=== PATIENT | female | born 1990 | race Caucasian/White ===

== ENCOUNTER 2022-12-04 05:01 | Emergency (ER) | payer OTHER ==
[~2022-12-04] VITALS: Ht 154.9 cm; Wt 106.8 kg
[2022-12-04 05:03] VITALS: BP 134/70; TEMP 97.3; O2SAT 100
== END 2022-12-04 06:09 | disposition left against medical advice (07) ==
LOC: M ED 05:01
DX: Z53.21 Procedure and treatment not carried out due to patient leaving prior to being seen by health care provider (principal)

== ENCOUNTER 2023-02-20 20:54 | Emergency (ER) | payer OTHER, SELFPAY ==
[~2023-02-20] VITALS: Ht 154.9 cm; Wt 119.0 kg
[2023-02-20 20:55] VITALS: BP 136/66; TEMP 99.7; O2SAT 100
[2023-02-20 22:08] LABS: BASO % 0.2 % (0.0-1.0); EOS # 0.3 10^3/uL (0.0-0.5); EOS % 2.2 % (0.0-3.0); HEMATOCRIT 39.7 % (36.0-47.0); HEMOGLOBIN 13.2 g/dl (12.0-15.5); LYMPH # 3.1 10^3/uL (1.5-5.0); LYMPH % 21.1 % (24.0-44.0); MEAN CORPUSCULAR HEMOGLOBIN 28.2 pg (27.0-33.0); MEAN CORPUSCULAR HGB CONC 33.2 g/dl (32.0-36.5); MEAN CORPUSCULAR VOLUME 84.8 fl (80.0-96.0); MONO # 0.7 10^3/uL (0.0-0.8); NEUTROPHILS # 10.6 10^3/uL (1.5-8.5); NEUTROPHILS % 71.2 % (36.0-66.0); PLATELET COUNT, AUTOMATED 341 10^3/uL (150-450); RED BLOOD COUNT 4.68 10^6/uL (4.00-5.40); WHITE BLOOD COUNT 14.8 10^3/uL (4.0-10.0)
[2023-02-20] MEDS ORDERED: ISOVUE-370 76% 100ML VIAL As Ordered ONE (22:31)
[2023-02-20 22:38] LABS: BLOOD UREA NITROGEN 12 MG/DL (9-23); CALCIUM LEVEL 8.9 MG/DL (8.5-10.1); CARBON DIOXIDE LEVEL 24 MMOL/L (20-31); CHLORIDE LEVEL 106 MMOL/L (98-107); CREATININE FOR GFR 0.72 MG/DL (0.55-1.30); GLOMERULAR FILTRATION RATE > 60.0 (>60); GLUCOSE, FASTING 87 MG/DL (60-100); POTASSIUM SERUM 3.6 MMOL/L (3.5-5.1); SODIUM LEVEL 141 MMOL/L (136-145)
[2023-02-20 22:40] LABS: THYROID STIMULATING HORMONE 1.914 uIU/ML (0.55-4.78)
[2023-02-20 22:41] LABS: FREE T4 1.04 NG/DL (0.89-1.76)
[2023-02-21] MEDS ORDERED: valACYclovir HCL 500 MG TAB PO ONE (00:05)
[2023-02-21] MEDS ORDERED: predniSONE 20 MG TAB PO ONE (00:05)
[2023-02-21] MEDS ORDERED: POLYVINYL ALCOHOL OPHTH SOLN 15ML (LIQUITEARS) OS ONE (00:10)
[2023-02-21] MEDS ORDERED: PRED20TA PO (00:16)
[2023-02-21] MEDS ORDERED: VALA1TAB5 PO (00:16)
[2023-02-21] MEDS ORDERED: ARTIDRO4 OS (00:17)
== END 2023-02-21 01:08 | disposition home or self-care (01) ==
LOC: M ED 20:54
DX: G51.0 Bell's palsy (principal); I49.8 Other specified cardiac arrhythmias; F17.200 Nicotine dependence, unspecified, uncomplicated; Z88.1 Allergy status to other antibiotic agents; Z79.52 Long term (current) use of systemic steroids; Z79.899 Other long term (current) drug therapy
CPT/HCPCS: 36415; 70450; 70496; 70498; 70544; 70551; 80047; 80048; 84439; 84443; 85025; 86618; 93005; 93041; 94760; 99284; J7512; Q9967